=== PATIENT | female | born 1965 | race Caucasian/White ===

== ENCOUNTER → 2021-03-30 | Outpatient (CLI) | payer OTHER | LOC: KOH-I 13:18 | DX: M54.50 Low back pain, unspecified (principal); M51.36 Other intervertebral disc degeneration, lumbar region | CPT/HCPCS: 72100 ==

== ENCOUNTER → 2021-09-23 | Outpatient (CLI) | payer OTHER | LOC: EMI 14:14 | DX: R51.9 Headache, unspecified (principal); R90.82 White matter disease, unspecified | CPT/HCPCS: 70551 ==

== ENCOUNTER → 2022-01-07 | Outpatient (CLI) | payer OTHER | LOC: KOH-I 12-31 10:30 | DX: M79.671 Pain in right foot (principal) | CPT/HCPCS: 73718 ==